=== PATIENT | female | born 1970 | race Asian ===

== ENCOUNTER 2019-06-10 12:26 | Inpatient (IN) | payer MEDICAID ==
[~2019-06-10] VITALS: Ht 160 cm; Wt 57.6 kg
--- NOTE | 2019-06-10 12:51 | NUR ---
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
--- NOTE | 2019-06-10 12:52 | NUR ---
Patient AUBREY from [facility] for rectal bleeding with clots that began this morning. Patient is nonverbal, trach to vent, with vent settings AC 16, TV 400, and FiO2 30%. Patient is contracted. Patient has history of HTN, hyperlipidemia, COPD, dysphagia, seizures, asthma, PNA, UTI, and sepsis. No signs or symptoms of acute distress noted.
--- NOTE | 2019-06-10 12:53 | NUR ---
ER Dr. Albarran at bedside examining patient.
--- NOTE | 2019-06-10 13:02 | NUR ---
Radiology at bedside for xray.
[2019-06-10 13:47] LABS: BASOPHILS % (AUTO) 0.6 % (0.0-2.0); EOSINOPHILS # (AUTO) 0.4 K/uL (0.0-0.4); EOSINOPHILS % (AUTO) 5.7 % (0.0-4.0); HEMATOCRIT 33.1 % (36-48); LYMPHOCYTES # (AUTO) 2.9 K/uL (1.0-5.5); MEAN CORPUSCULAR HEMOGLOBIN 30 pg (27-31); MEAN CORPUSCULAR HGB CONC 33 % (32-36); MEAN CORPUSCULAR VOLUME 90 fL (79.0-98.0); MONOCYTES # (AUTO) 0.5 K/uL (0.0-1.0); MONOCYTES % (AUTO) 6.5 % (1.7-9.3); NEUTROPHILS # (AUTO) 3.5 K/uL (1.8-7.7); NEUTROPHILS % (AUTO) 48.2 % (40.0-70.0); PLATELET COUNT (AUTO) 489 K/uL (130-430); RED BLOOD CELL COUNT(AUTO) 3.67 MIL/uL (4.2-6.2); RED CELL DISTRIBUTION WIDTH 14.8 % (9.0-15.0); WHITE BLOOD COUNT (AUTO) 7.3 K/uL (4.8-10.8)
[2019-06-10 13:59] LABS: CALCIUM 9.2 mg/dL (8.4-11.0); CREATININE 0.54 mg/dL (0.55-1.30); POTASSIUM 3.1 mmol/L (3.5-5.1)
[2019-06-10 14:04] LABS: ALBUMIN 3.7 g/dL (3.4-4.8); TOTAL BILIRUBIN 0.5 mg/dL (0.0-1.0)
[2019-06-10] MEDS ORDERED: LEVE500V GT (14:39)
[2019-06-10] MEDS ORDERED: CRAN450T9 GT (14:39)
[2019-06-10] MEDS ORDERED: NPH,100V SQ (14:39)
[2019-06-10] MEDS ORDERED: MOM GT (14:39)
[2019-06-10] MEDS ORDERED: INSU100V7 SQ (14:39)
[2019-06-10] MEDS ORDERED: HYDR-4100 GT (14:39)
[2019-06-10] MEDS ORDERED: ACET325C3 GT (14:39)
[2019-06-10] MEDS ORDERED: CLON0.1T GT (14:39)
[2019-06-10] MEDS ORDERED: FLEET PR (14:39)
[2019-06-10] MEDS ORDERED: FAMO-132 GT (14:39)
[2019-06-10] MEDS ORDERED: PERIDEX GT (14:39)
[2019-06-10] MEDS ORDERED: COLL100 GT (14:39)
[2019-06-10] MEDS ORDERED: LIP10 GT (14:39)
[2019-06-10] MEDS ORDERED: FENO145T37 GT (14:39)
[2019-06-10] MEDS ORDERED: SSNOVOLOG SUBCUT (14:41)
[2019-06-10] MEDS ORDERED: IPRA3AMP9 INH ×2 (14:46)
--- NOTE | 2019-06-10 14:46 | NUR ---
Medication reconciliation completed with information provided by CHENCHO CHAHAL. Any prior medication reconciliation on file was reviewed and corrected.
--- NOTE | 2019-06-10 15:35 | NUR ---
Patient will be admitted to care of Dr. Echeverria. Admitted to telemetry unit. Will go to room 123-A. Belongings list completed. Complete and up to date summary report printed. SBAR report to be given at bedside with opportunity for questions.
--- NOTE | 2019-06-10 16:40 | NUR ---
ADMISSION NOTE Received patient from ER via elena, received report from SOLOMON DUNCAN. Patient admitted with diagnosis of GI BLEED. Patient oriented to hospital routine, call light, toileting and safety-patient verbalized understanding.
--- NOTE | 2019-06-10 16:47 | NUR ---
CONSULTATION PAGED REASON FOR CONSULTATION:GI BLEED WAS CONSULT CALLED?Y PERSON WHO WAS NOTIFIED:AILEEN CONSULTING PHYSICIAN:LAWSON DEGROOT WIND ENERGY PROJECT MANAGER SPECIALTY:GI WIND ENERGY PROJECT MANAGER PHONE NUMBER:[phone] REQUESTING PHYSICIAN:XIOMARA DAVIS
--- NOTE | 2019-06-10 16:59 | NUR ---
Transfer to Telemetry Patient transferred to telemetry unit room 123-A on hospital bed on continuous panel monitor using ACLS protocol. ACLS RN and RT present at all times. No signs or symptoms of acute distress noted. Endorsed bedside report to Bernabe RN using SBAR approach for continuation of care.
--- NOTE | 2019-06-10 17:00 | NUR ---
Valenzuela Catheter changed 16FR, patient tolerated well, urine is yellow with sediments, not enough urine for urinalysis/urine culture at this time, Valenzuela Catheter to gravity.
[2019-06-10 17:14] VITALS: BP_SYST 148
--- NOTE | 2019-06-10 17:15 | NUR ---
Dr. Winters rounds SBAR report given, informed MD of need for tube feeding orders, will follow up.
[2019-06-10] MEDS ORDERED: IPRATROPIUM/ALBUTEROL SULFATE 3 ML AMPUL.NEB (DUONEB) INH PRN (18:15)
--- NOTE | 2019-06-10 18:48 | NUR ---
Paged Dr. Echeverria unable to obtain IV line for the patient, inquiring about orders for possible PICC line.
--- NOTE | 2019-06-10 18:58 | NUR ---
Closing note patient resting in bed, eyes closed, breathing is even and unlabored, no signs of distress, will endorse report to NOC shift nurse, bed in lowest position, three side rails up, bed alarm on, bed close to nursing station, fall, aspiration and seizure precautions in place.
--- NOTE | 2019-06-10 19:12 | NUR ---
PAGED I PAGED DR. ELIZABETH @ 1911 I SPOKE WITH SOLOMON HOFFMANN
--- NOTE | 2019-06-10 19:30 | NUR ---
OPENING NOTES RECEIVED PATIENT IN BED TRACH TO VENT WITH SETTINGS TOLERATED. BREATHING UNLABORED. BED IN LOWEST LOCKED POSITION WITH ALARM ON. SEIZURE PRECAUTIONS IN PLACED. STARTED ON GT FEEDING JEVITY 1.5 ORDERED. NO RESIDUAL OBTAINED. HOB ELEVATED 30 DEGREES.
[2019-06-10] MEDS: NACL 0.9% 1,000 ML IV SCH (19:53)
--- NOTE | 2019-06-10 19:53 | NUR ---
IVF INSERTED IV LINE TO RT HAND g#22. IVF INFUSION NS @ 75 ML/HR STARTED ORDERED.
[2019-06-10 19:58] VITALS: BP_SYST 149
--- NOTE | 2019-06-10 20:05 | NUR ---
DR. ELIZABETH: DR. ELIZABETH CALLED BACK @ 2004
[2019-06-10] MEDS: DOCUSATE SODIUM 100 MG/10 ML UDC GT SCH (20:14)
[2019-06-10] MEDS: ATORVASTATIN 20 MG TABLET GT SCH (20:14)
--- NOTE | 2019-06-10 20:15 | NUR ---
POTASSIUM SPOKE WITH DR. ELIZABETH MADE AWARE OF PATIENT LOW POTASSIUM LEVEL. ORDERED TO GIVE 30 MEQ KCL VIA GT. MD ORDER CARRIED OUT.
[2019-06-10] MEDS: INSULIN NPH 100 UNITS/ML 10 ML VIAL SQ SCH (20:24)
[2019-06-10] MEDS: CHLORHEXIDINE GLUCONATE 15 ML/DOSE, 480 ML MM SCH (20:28)
--- NOTE | 2019-06-10 20:28 | NUR ---
MED PASS PATIENT DUE MEDICATIONS GIVEN. VITAL SIGNS STABLE.
[2019-06-10] MEDS ORDERED: POTASSIUM CHLORIDE 20 MEQ/PKT PACKET GT SCH (20:30)
[2019-06-10] MEDS: IPRATROPIUM/ALBUTEROL SULFATE 3 ML AMPUL.NEB (DUONEB) INH SCH (20:59)
[2019-06-10] MEDS ORDERED: levETIRAcetam 500 MG in NS 100 ML IV ONE (21:00)
--- NOTE | 2019-06-10 23:40 | NUR ---
HAYWOOD CATH HAYWOOD CATH REMOVED NO OUTPUT NOTED. PATIENT CHUX WET WITH URINE. INSERTED NEW HAYWOOD CATH MOHAWK 16. CLOUDY YELLOW URINE WITH SEDIMENTS CAME OUT FROM THE CATHETER. CATH SECURED WITH SECUREMENT DEVICE AND HAYWOOD DRAINING BY GRAVITY.
--- NOTE | 2019-06-11 01:00 | NUR ---
URINE SPECIMEN COLLECTED URINE FOR UA C/S ORDERED. SENT TO LAB.
[2019-06-11 01:32] VITALS: BP_SYST 137
[2019-06-11 01:36] LABS: BILIRUBIN,URINE NEGATIVE (NEGATIVE); BLOOD, URINE 3+ (NEGATIVE); CLARITY/URINE SL CLOUDY (CLEAR); COLOR,URINE YELLOW (YELLOW); GLUCOSE,URINE NEGATIVE (NEGATIVE); KETONES,URINE NEGATIVE (NEGATIVE); LEUKOCYTE ESTERASE ,URINE 3+ (NEGATIVE); NITRITE, URINE POSITIVE (NEGATIVE); PH,URINE 8.5 (5.0-8.0); PROTEIN URINE 1+ (NEGATIVE)
[2019-06-11] MEDS: IPRATROPIUM/ALBUTEROL SULFATE 3 ML AMPUL.NEB (DUONEB) INH SCH ×3 (01:42→13:38)
[2019-06-11 01:44] LABS: BACTERIA,URINE MANY /HPF (None Seen); MUCUS,URINE 1+ /LPF (None Seen); RBC,URINE 50-80 /HPF (0-3); WBC,URINE >100 /HPF (0-3)
--- NOTE | 2019-06-11 03:30 | NUR ---
ROUNDS PATIENT RESTING IN BED. NO DISTRESS NOTED.
--- NOTE | 2019-06-11 05:50 | NUR ---
AM CARE AM CARE DONE. ALL LINENS CHANGED. COLLECTED STOOL OB ORDERED. GT DRESSING CHANGED.
[2019-06-11 06:45] LABS: BASOPHILS % (AUTO) 0.6 % (0.0-2.0); EOSINOPHILS # (AUTO) 0.2 K/uL (0.0-0.4); EOSINOPHILS % (AUTO) 3.3 % (0.0-4.0); HEMATOCRIT 29.5 % (36-48); HEMOGLOBIN 9.8 g/dL (12.0-16.0); LYMPHOCYTES # (AUTO) 2.3 K/uL (1.0-5.5); LYMPHOCYTES % (AUTO) 37.7 % (20.5-51.5); MEAN CORPUSCULAR HEMOGLOBIN 30 pg (27-31); MEAN CORPUSCULAR HGB CONC 33 % (32-36); MEAN CORPUSCULAR VOLUME 91 fL (79.0-98.0); MONOCYTES # (AUTO) 0.4 K/uL (0.0-1.0); MONOCYTES % (AUTO) 6.7 % (1.7-9.3); NEUTROPHILS # (AUTO) 3.2 K/uL (1.8-7.7); NEUTROPHILS % (AUTO) 51.7 % (40.0-70.0); PLATELET COUNT (AUTO) 445 K/uL (130-430); RED BLOOD CELL COUNT(AUTO) 3.24 MIL/uL (4.2-6.2); RED CELL DISTRIBUTION WIDTH 14.5 % (9.0-15.0); WHITE BLOOD COUNT (AUTO) 6.2 K/uL (4.8-10.8)
--- NOTE | 2019-06-11 06:53 | NUR ---
CLOSING NOTES PATIENT CONDITION UNCHANGED. GT FEEDING NO RESIDUAL THROUGH OUT THE NIGHT. CURRENT VENT SETTINGS TOLERATED. SEIZURE AND ASPIRATION PRECAUTIONS IN PLACED.
[2019-06-11 07:08] LABS: PROTHROMBIN TIME 9.8 SECS (9.5-12.5)
[2019-06-11 07:38] VITALS: BP_SYST 122
--- NOTE | 2019-06-11 07:42 | NUR ---
AM ROUNDS: Open eyes to verbal stimuli. Vent dependent to trach Portex size 8 cuffed. GT with Jevity 1.5 at 50 cc/hr . Bilateral hands and lower extremities are contracted. IV of normal saline at 75 cc/hr infusing on the left hand gauge 22, patent and intact.Valenzuela catheter with clear yellow urine with minimal sediments noted. Low air loss mattress for low nika score, bed in lowest position, call light within reach.
[2019-06-11 07:59] LABS: ALBUMIN 3.2 g/dL (3.4-4.8); CALCIUM 8.4 mg/dL (8.4-11.0); CREATININE 0.51 mg/dL (0.55-1.30); PHOSPHORUS 2.4 mg/dL (2.7-4.5); POTASSIUM 3.2 mmol/L (3.5-5.1)
[2019-06-11 08:01] LABS: TOTAL BILIRUBIN 0.2 mg/dL (0.0-1.0)
[2019-06-11] MEDS: NACL 0.9% 1,000 ML IV SCH ×2 (08:37→20:16)
[2019-06-11] MEDS: CHLORHEXIDINE GLUCONATE 15 ML/DOSE, 480 ML MM SCH ×2 (08:38→20:20)
[2019-06-11] MEDS ORDERED: levETIRAcetam 500 MG IV PREMIX 100 ML IV SCH (09:00)
[2019-06-11] MEDS: levETIRAcetam 500 MG IV PREMIX 100 ML IV SCH ×2 (09:01→20:20)
--- NOTE | 2019-06-11 09:57 | NUR ---
Nutrition Update German Scale 13 noted. Pt admitted for GI Bleed Diet: Jevity 1.5 @ 50ml/hr BMI: 22.5 kg/m2 RD to follow per nutrition care standards.
--- NOTE | 2019-06-11 11:00 | NUR ---
Bleeding: Large amount of dark red blood clots came out of the rectum while the patient was being cleaned. Will monitor. Stool OB result was reported earlier to Dr. Winters.
[2019-06-11] MEDS ORDERED: FLU VACC QS2019-20 36MOS UP/PF 60 MCG/0.5 ML SYRINGE I.M. PRN (12:15)
[2019-06-11 12:33] VITALS: BP_SYST 133
--- NOTE | 2019-06-11 12:55 | NUR ---
Wound Evaluation: Wound Consult ordered for Low German Score. Patient evaluated for a low German score of 13. Patient opens eyes, nonverbal, nonresponsive to verbal commands, and received in a [place] Bed with an Isoflex JEFFERY mattress with low air loss therapy initiated. Patient needs to be turned in bed. All extremities have contractures. Recommend reposition patient every 2 hours with pillow support. Elevate, off-load and float bilateral heels with pillows. Offload pressure areas with pillows for pressure re-distribution. Perform skin care and monitor skin integrity Q shift. Use moisture barrier cream on moisture susceptible areas QID and PRN for soiling. Maintain patient on a low air-loss mattress.
--- NOTE | 2019-06-11 13:10 | NUR ---
Midline INSERTION: Inserted on the right upper arm. Circumference is 25 cm, 0 external catheter. Covered with clear dressing, with biopatch
[2019-06-11 13:25] LABS: THYROID STIMULATING HORMONE 1.44 uIu/mL (0.34-4.82)
[2019-06-11] MEDS ORDERED: BISACODYL 5 MG TABLET.DR (DULCOLAX) PO ONE (17:00)
[2019-06-11 17:14] VITALS: BP_SYST 127
[2019-06-11] MEDS ORDERED: GOLYTELY / COLYTE SOLUTION 4 LITERS PO ONE (18:00)
--- NOTE | 2019-06-11 18:12 | NUR ---
notification of rectal bleeding: Dr Vazquez Rouse is notified of rectal bleeding. New orders received.
[2019-06-11 18:24] LABS: BASOPHILS % (AUTO) 0.3 % (0.0-2.0); EOSINOPHILS # (AUTO) 0.2 K/uL (0.0-0.4); EOSINOPHILS % (AUTO) 2.2 % (0.0-4.0); HEMATOCRIT 28.1 % (36-48); HEMOGLOBIN 9.3 g/dL (12.0-16.0); LYMPHOCYTES # (AUTO) 2.4 K/uL (1.0-5.5); MEAN CORPUSCULAR HEMOGLOBIN 31 pg (27-31); MEAN CORPUSCULAR HGB CONC 33 % (32-36); MEAN CORPUSCULAR VOLUME 92 fL (79.0-98.0); MONOCYTES # (AUTO) 0.4 K/uL (0.0-1.0); MONOCYTES % (AUTO) 5.1 % (1.7-9.3); NEUTROPHILS # (AUTO) 4.7 K/uL (1.8-7.7); NEUTROPHILS % (AUTO) 61.4 % (40.0-70.0); PLATELET COUNT (AUTO) 417 K/uL (130-430); RED BLOOD CELL COUNT(AUTO) 3.06 MIL/uL (4.2-6.2); WHITE BLOOD COUNT (AUTO) 7.6 K/uL (4.8-10.8)
[2019-06-11] MEDS ORDERED: POTASSIUM CHLORIDE 20 MEQ/PKT PACKET GT ONE (18:45)
--- NOTE | 2019-06-11 19:30 | NUR ---
INITIAL NOTES PATIENT IS LAYING IN BED AND STABLE. NO S/S OF RESPIRATORY DISTRESS NOTED. PLAN OF CARE WAS DISCUSSED WITH PATIENT AT THIS TIME. PATIENT UNSUCCESSFULLY DEMONSTRATES USAGE OF CALL LIGHT AT THIS TIME. WILL CONTINUE TO MONITOR. FALL, SAFETY, ASPIRATION, AND RESPIRATORY PRECAUTIONS WILL BE IN PLACE THROUGHOUT THE SHIFT.
[2019-06-11 19:35] VITALS: BP_SYST 115
--- NOTE | 2019-06-11 20:00 | NUR ---
CLEANSED PATIENT WAS CLEANED AND REPOSITION FOR COMFORT AT THIS TIME. PATIENT TOLERATED WELL. PATIENT REPOSITION FOR COMFORT. PT IS STABLE. NO S/S OF RESPIRATORY DISTRESS NOTED. CALL LIGHT IN REACH. BED IS LOCKED, ALARMED, AND AT THE LOWEST POSITION.
[2019-06-11] MEDS: DOCUSATE SODIUM 100 MG/10 ML UDC GT SCH (20:19)
[2019-06-11] MEDS: ATORVASTATIN 20 MG TABLET GT SCH (20:19)
[2019-06-11] MEDS: INSULIN NPH 100 UNITS/ML 10 ML VIAL SQ SCH (20:38)
--- NOTE | 2019-06-11 21:30 | NUR ---
ROUNDING PATIENT IS STABLE AND IN BED. NO S/S OF RESPIRATORY DISTRESS NOTED. CALL LIGHT IN REACH. BED IS LOCKED, ALARMED, AND AT THE LOWEST POSITION. WILL CONTINUE TO MONITOR.
--- NOTE | 2019-06-12 | NUR ---
NPO EDUCATED PATIENT ON NPO STATUS. PATIENT IS NOW NPO.
[2019-06-12 00:16] VITALS: BP_SYST 147
[2019-06-12] MEDS: IPRATROPIUM/ALBUTEROL SULFATE 3 ML AMPUL.NEB (DUONEB) INH SCH ×5 (01:17→20:08)
--- NOTE | 2019-06-12 01:34 | NUR ---
DR. ANDINO'S ROUNDS DR. Andino came in the unit. Per Dr. Andino, Dr. Echeverria told him to cover for him for this pt, placed an order as consult but reason for consult is Dr. Andino covering for Dr. Echeverria.
--- NOTE | 2019-06-12 02:00 | NUR ---
PATIENT IS SLEEPING AND STABLE. NO S/S OF RESPIRATORY DISTRESS NOTED. CALL LIGHT IN REACH. BED IS LOCKED, ALARMED, AND AT THE LOWEST POSITION. WILL CONTINUE TO MONITOR.
--- NOTE | 2019-06-12 04:00 | NUR ---
PATIENT IS SLEEPING IN BED AND STABLE. NO S/S OF RESPIRATORY DISTRESS NOTED. CALL LIGHT IN REACH. BED IS LOCKED, ALARMED, AND AT THE LOWEST POSITION. WILL CONTINUE TO MONITOR.
[2019-06-12] MEDS: cefTRIAXone 1 GM in D5W 50 ML IV SCH (04:21)
--- NOTE | 2019-06-12 05:10 | NUR ---
TAP WATER EDEMA DONE AT THIS TIME 3 L OF TAP WATER WAS USED. THE OUTPUT WAS CLEAR AND LIGHT BROWN. PATIENT TOLERATED WELL. PATIENT WAS REPOSITION FOR COMFORT. CALL LIGHT IN REACH. BED IS LOCKED, ALARMED, AND AT THE LOWEST POSITION.
[2019-06-12 06:18] LABS: BASOPHILS % (AUTO) 0.5 % (0.0-2.0); EOSINOPHILS # (AUTO) 0.2 K/uL (0.0-0.4); EOSINOPHILS % (AUTO) 3.3 % (0.0-4.0); LYMPHOCYTES # (AUTO) 2.6 K/uL (1.0-5.5); LYMPHOCYTES % (AUTO) 40.2 % (20.5-51.5); MEAN CORPUSCULAR HEMOGLOBIN 30 pg (27-31); MEAN CORPUSCULAR HGB CONC 33 % (32-36); MEAN CORPUSCULAR VOLUME 91 fL (79.0-98.0); MONOCYTES # (AUTO) 0.4 K/uL (0.0-1.0); MONOCYTES % (AUTO) 6.7 % (1.7-9.3); NEUTROPHILS # (AUTO) 3.2 K/uL (1.8-7.7); NEUTROPHILS % (AUTO) 49.3 % (40.0-70.0); PLATELET COUNT (AUTO) 344 K/uL (130-430); RED BLOOD CELL COUNT(AUTO) 2.32 MIL/uL (4.2-6.2); RED CELL DISTRIBUTION WIDTH 15.2 % (9.0-15.0); WHITE BLOOD COUNT (AUTO) 6.5 K/uL (4.8-10.8)
--- NOTE | 2019-06-12 06:18 | NUR ---
CLOSING NOTES PATIENT IS STABLE AND LAYING IN BED. NO S/S OF RESPIRATORY DISTRESS NOTED. CALL LIGHT IN REACH. BED IS LOCKED, ALARMED, AND AT THE LOWEST POSITION. FALL, SAFETY, ASPIRATION, RESPIRATORY, SEIZURES, AND CONTACT PRECAUTIONS HAS BEEN IN PLACE THROUGHOUT THE SHIFT. WILL CONTINUE TO MONITOR UNTIL REPORT IS GIVEN TO AM NURSE BY BEDSIDE. Addendum: 06/12/19 at 0621 by Jennifer Lock RN FALL, SAFETY, ASPIRATION, RESPIRATORY, AND SEIZURES PRECAUTIONS HAS BEEN IN PLACE THROUGHOUT THE SHIFT.*
[2019-06-12 06:34] LABS: HEMATOCRIT 21.2 % (36-48)
[2019-06-12 06:53] LABS: ALBUMIN 2.6 g/dL (3.4-4.8); CALCIUM 7.9 mg/dL (8.4-11.0); CREATININE 0.4 mg/dL (0.55-1.30); POTASSIUM 3.1 mmol/L (3.5-5.1); TOTAL BILIRUBIN 0.2 mg/dL (0.0-1.0)
--- NOTE | 2019-06-12 06:55 | NUR ---
MD Vazquez Rouse paged regarding critical H&H.
--- NOTE | 2019-06-12 07:13 | NUR ---
NUVIA DARNELL VP [employer]ER[employer] DR HILL WAS CALLED, RE: CRITICAL H AND H LEVELS. SPOKE TO BORIS.
--- NOTE | 2019-06-12 07:20 | NUR ---
CRITICAL LABS ENDORSED TO AM SHIFT NURSE.
[2019-06-12] MEDS: CHLORHEXIDINE GLUCONATE 15 ML/DOSE, 480 ML MM SCH ×2 (09:00→22:05)
[2019-06-12] MEDS: levETIRAcetam 500 MG IV PREMIX 100 ML IV SCH ×2 (10:10→21:58)
--- NOTE | 2019-06-12 10:30 | NUR ---
rounds first unit of blood started on the r upper arm infusing well. no infiltration noted. at bedside and observed for any blood transfusion reaction .
--- NOTE | 2019-06-12 11:30 | NUR ---
CONSULTATION PAGED/CALLED Reason for Consultation: [] Person Who was Notified: [] deloris Consulting Physician: [] DR BEAU ANDINO Wide Piece Goods Inspector Specialty: [] YARI Ordering Physician: [] DR ELIZABETH Addendum: 06/12/19 at 1134 by Linda De Leon HI/ REASON FOR CONSULT; R/O INFECTION ; BRONCHITIS
[2019-06-12] MEDS ORDERED: SIMETHICONE 40 MG/0.6 ML ML ONE (12:08)
--- NOTE | 2019-06-12 12:16 | NUR ---
rounds gi procedure at bedside being done by dr toscano and gi team at bedside.
[2019-06-12 12:30] VITALS: BP_SYST 133
--- NOTE | 2019-06-12 15:41 | NUR ---
Nutrition Assessment (short note d/t high patient load) A - RD reviewed pertinent nutrition-related info via EMR (physician notes/nursing notes/labs/meds/nursing care trends/care activity). Admission Dx: GI bleed PMH: asthma, COPD, HLD, respiratory failure, dysphagia, HTN, seizure disorder per physician notes Current Diet Order/Nutrition Support: NPO x0 days Ht: 63"/5'3" Wt: 128#/58 kg IBW:115#/52 kg %IBW: 112% UBW: N/A %UBW: N/A BMI: 22.5 kg/m2 (normal) Subjective Info: RD Notification received for TF. Nutrition Consult received for low nika. Pt was seen resting in bed, eyes closed, and evidence of Jevity 1.5 TF hung but not infusing at time of RD visit. Primary RN reported that pt had EGD/colonoscopy today, and may likely resume TF after results are available. Pt is not yet meeting optimal nutritional needs. ESTIMATED NUTRITIONAL NEEDS CALORIES/DAY: 9411-2978 kcal/day (25-30 kcal/kg CBW for maintenance) PROTEIN/DAY: 46-58 gm/day (0.8-1 gm/kg CBW for maintenance) FLUID/DAY: 1.7-2 L/day (30-35 ml/kg CBW for maintenance) D - Inadequate EN support related to maintenance as evidenced by no currently infusing nutrition support to meet estimated nutritional needs. I - Recommend Jevity 1.5 at 45 ml/hr (goal rate), Free Water Flush: 200 ml Q6h via GT Provides: 1620 kcal/day, 69 gm protein/day, and 1621 ml free water/day Meets: 93% of upper end of estimated caloric needs and 119% of upper end of estimated protein needs M - Monitor tolerance to EN support w/ goal of pt meeting at least 80% of estimated nutritional needs, labs trending WNL, normal GI function, and skin integrity/wt maintenance E - High risk; RD to F/U within 2-3 days
--- NOTE | 2019-06-12 15:46 | NUR ---
Dietitian Recommendations * Recommend Jevity 1.5 at 45 ml/hr (goal rate), Free Water Flush: 200 ml Q6h via GT Provides: 1620 kcal/day, 69 gm protein/day, and 1621 ml free water/day Meets: 93% of upper end of estimated caloric needs and 119% of upper end of estimated protein needs LP, RD Please refer to Nutrition Assessment for details.
[2019-06-12 16:32] VITALS: BP_SYST 130
[2019-06-12] MEDS: NACL 0.9% 1,000 ML IV SCH ×3 (18:36→21:20)
--- NOTE | 2019-06-12 19:21 | NUR ---
OPENING NOTES Received patient resting, eyes closed, opens eye when calling name, non verbal. Connected to vent, no signs of respiratory distress observed. IVF running to CHEL midline, patent, dressings c/d/i. Gtube patent, running Jevity 1.5, no kinks. Valenzuela catheter in place, no kinks or loops, bag not touching the floor, clear yellow urine. Seizure pads in place. Call light within reach, bed at lowest position. Will continue to monitor.
[2019-06-12 19:45] VITALS: BP_SYST 114
[2019-06-12] MEDS: INSULIN NPH 100 UNITS/ML 10 ML VIAL SQ SCH (22:02)
[2019-06-12] MEDS: DOCUSATE SODIUM 100 MG/10 ML UDC GT SCH (22:04)
[2019-06-12] MEDS: ATORVASTATIN 20 MG TABLET GT SCH (22:05)
--- NOTE | 2019-06-12 22:11 | NUR ---
Patient is resting, no signs of acute respiratory distress. Will continue to monitor.
[2019-06-13 00:13] VITALS: BP_SYST 134
[2019-06-13] MEDS: cefTRIAXone 1 GM in D5W 50 ML IV SCH (01:27)
[2019-06-13] MEDS: IPRATROPIUM/ALBUTEROL SULFATE 3 ML AMPUL.NEB (DUONEB) INH SCH ×3 (01:38→19:35)
--- NOTE | 2019-06-13 01:44 | NUR ---
Patient is resting, eyes closed. No signs of respiratory distress observed. Will continue to monitor.
--- NOTE | 2019-06-13 04:19 | NUR ---
Patient is resting, no signs of acute respiratory distress observed. Will continue to monitor.
--- NOTE | 2019-06-13 06:51 | NUR ---
CLOSING NOTES Patient is resting, eyes closed. Connected to vent, no signs of respiratory distress observed. IVF running to CHEL midline, patent, dressings c/d/i. Gtube patent, running Jevity 1.5, no kinks, 0ml Residual. Valenzuela catheter in place, no kinks or loops, bag not touching the floor, clear yellow urine. Seizure pads in place. Call light within reach, bed at lowest position, bed alarm on. All needs met throughout shift. Will endorse care to oncoming shift.
[2019-06-13 06:52] LABS: BASOPHILS % (AUTO) 0.3 % (0.0-2.0); EOSINOPHILS # (AUTO) 0.4 K/uL (0.0-0.4); EOSINOPHILS % (AUTO) 5.7 % (0.0-4.0); HEMATOCRIT 30.2 % (36-48); HEMOGLOBIN 10.1 g/dL (12.0-16.0); LYMPHOCYTES # (AUTO) 1.3 K/uL (1.0-5.5); LYMPHOCYTES % (AUTO) 20.1 % (20.5-51.5); MEAN CORPUSCULAR HEMOGLOBIN 31 pg (27-31); MEAN CORPUSCULAR HGB CONC 33 % (32-36); MEAN CORPUSCULAR VOLUME 92 fL (79.0-98.0); MONOCYTES # (AUTO) 0.3 K/uL (0.0-1.0); MONOCYTES % (AUTO) 5.2 % (1.7-9.3); NEUTROPHILS # (AUTO) 4.5 K/uL (1.8-7.7); NEUTROPHILS % (AUTO) 68.7 % (40.0-70.0); PLATELET COUNT (AUTO) 298 K/uL (130-430); PROTHROMBIN TIME 9.9 SECS (9.5-12.5); RED BLOOD CELL COUNT(AUTO) 3.28 MIL/uL (4.2-6.2); RED CELL DISTRIBUTION WIDTH 15.8 % (9.0-15.0); WHITE BLOOD COUNT (AUTO) 6.5 K/uL (4.8-10.8)
[2019-06-13 07:10] LABS: ALBUMIN 2.9 g/dL (3.4-4.8); CALCIUM 8.4 mg/dL (8.4-11.0); CREATININE 0.43 mg/dL (0.55-1.30); POTASSIUM 3.1 mmol/L (3.5-5.1); TOTAL BILIRUBIN 0.5 mg/dL (0.0-1.0)
--- NOTE | 2019-06-13 08:00 | NUR ---
initial notes rec patient opens eyes but non verbally responsive. r upper midline intact and infusing well with iv. no infiltration noted. gt feeding twila well and no residual noted. resp easy and unlabored. on mechanical ventilator. no sob noted. turned repositioned for comfort. was seen by dr toscano. bed to the lowest position and side rails up and locked.call light within reached.
[2019-06-13] MEDS ORDERED: MIDAZOLAM HCL/PF 2 MG/2 ML SYRINGE IVP ONE (10:00)
[2019-06-13] MEDS ORDERED: PHENYLEPH/MINERAL OIL/PETROLAT 45 GM OINT.APPL TP ONE (10:00)
[2019-06-13] MEDS ORDERED: MEPERIDINE HCL/PF 50 MG/ML AMP IM PRN (10:00)
[2019-06-13] MEDS: CHLORHEXIDINE GLUCONATE 15 ML/DOSE, 480 ML MM SCH ×2 (10:01→20:04)
[2019-06-13] MEDS: levETIRAcetam 500 MG IV PREMIX 100 ML IV SCH ×2 (10:01→20:04)
[2019-06-13] MEDS: FAMOTIDINE 20 MG TABLET GT SCH (10:01)
--- NOTE | 2019-06-13 12:00 | NUR ---
rounds visited be scar cab driver for dr prieto. no sob noted.
[2019-06-13] MEDS ORDERED: POTASSIUM CHLORIDE 20 MEQ/PKT PACKET GT ONE (12:15)
[2019-06-13 12:30] VITALS: BP_SYST 130
[2019-06-13] MEDS: NACL 0.9% 1,000 ML IV SCH (13:42)
--- NOTE | 2019-06-13 14:00 | NUR ---
rounds turned repositioned for comfort. no sob noted.
--- NOTE | 2019-06-13 16:00 | NUR ---
rounds gt feeding was changed. no residual noted.
[2019-06-13 16:29] VITALS: BP_SYST 130
--- NOTE | 2019-06-13 18:30 | NUR ---
closing notes dr leo ignacio was called re mdro and esbl of the urine and with orders. turned repositioned for comfort. no rectal bleeding noted. gt feeding twila well. no sob noted. stable and needs attended.
--- NOTE | 2019-06-13 19:30 | NUR ---
OPENING NOTES RECEIVED CARE OF PT AND SBAR REPORT. PT IS RESTING, WITH EYES CLOSED, AROUSES TO LIGHT TOUCH. PT IS NONVERBAL. BREATHING IS UNLABORED TO VENT SETTINGS, AC 16, TV 400, PEEP 5, FIO2 30%. IVF ARE INFUSING TO CHEL MIDLINE WITH NO SIGNS OF INFILTRATION AT IV SITE. GTUBE IS PATENT AND IS RUNNING JEVITY 1.5 AT 50 ML/HR. F/C IS INTACT AND DRAINING TO GRAVITY. SEIZURE PADS ARE IN PLACE. BED IS LOCKED AND ALARMED AT THE LOWEST LEVEL. ASPIRATION PRECUATIONS OBSERVED. CONTACT PRECAUTIONS MAINTIANED. WILL CONTINUE TO MONITOR.
[2019-06-13 20:00] VITALS: BP_SYST 138
[2019-06-13] MEDS: ATORVASTATIN 20 MG TABLET GT SCH (20:03)
[2019-06-13] MEDS: PHENYLEPH/MINERAL OIL/PETROLAT 45 GM OINT.APPL TP SCH (20:04)
[2019-06-13] MEDS: DOCUSATE SODIUM 100 MG/10 ML UDC GT SCH (20:04)
[2019-06-13] MEDS: INSULIN NPH 100 UNITS/ML 10 ML VIAL SQ SCH (20:14)
--- NOTE | 2019-06-13 20:14 | NUR ---
MEDICATION PASS. SCHEDULED MEDICATIONS ADMINISTERED ORDERED. GTUBE IS PATENT WITH NO RESIDUAL NOTED. ACCUCHECK SHOWED BLOOD SUGAR OF 143. 10 UNITS OF HUMULIN N ADMINISTERED SCHEDULED. NO S/S OF ACUTE DISTRESS. BREATHING IS UNLABORED TO VENT SETTINGS. SAFETY, ASPIRATION, SEIZURE, AND CONTACT PRECAUTIONS ARE IN PLACE. WILL MONITOR.
[2019-06-13] MEDS: MEROPENEM 500 MG in NS 50 ML IV SCH ×2 (21:42→21:45)
[2019-06-13] MEDS ORDERED: MEROPENEM 1 GM VIAL IV ONE (21:45)
--- NOTE | 2019-06-13 22:28 | NUR ---
FLU SHOT ADMINISTERED. PT TOLERATED WELL.
[2019-06-14] MEDS: NACL 0.9% 1,000 ML IV SCH ×2 (00:04→14:32)
--- NOTE | 2019-06-14 00:09 | NUR ---
INCONTINENCE CARE PATIENT INCONTINENT OF BOWELS. PATIENT WAS CLEANED AND REPOSITION FOR COMFORT AT THIS TIME. PATIENT TOLERATED WELL. PT IS STABLE. NO S/S OF RESPIRATORY DISTRESS NOTED. CALL LIGHT IN REACH. BED IS LOCKED, ALARMED, AND AT THE LOWEST POSITION. Addendum: 06/14/19 at 0120 by Dee Whittaker RN NO BLOOD IN STOOL OR RECTAL BLEEDING NOTED AT THIS TIME.
[2019-06-14 00:21] VITALS: BP_SYST 136
[2019-06-14] MEDS: IPRATROPIUM/ALBUTEROL SULFATE 3 ML AMPUL.NEB (DUONEB) INH SCH ×4 (00:41→20:05)
--- NOTE | 2019-06-14 02:19 | NUR ---
RN ROUNDS: PATIENT IS STABLE AND RESTING IN BED. NO S/S OF RESPIRATORY DISTRESS NOTED. CALL LIGHT IN REACH. BED IS LOCKED, ALARMED, AND AT THE LOWEST POSITION. WILL CONTINUE TO MONITOR.
[2019-06-14] MEDS: MEROPENEM 500 MG in NS 50 ML IV SCH ×3 (05:12→21:32)
--- NOTE | 2019-06-14 05:12 | NUR ---
MERREM/AM CARE SCHEDULED MERREM ADMINISTERED. NO S/S OF ADVERSE REACTION NOTED. PT REPOSITIONED FOR COMFORT WITH PILLOW SUPPORT. ORAL CARE PROVIDED. PT TOLERATED WELL. NO S/S OF DISTRESS. SAFETY, ASPIRATION, SEIZURE AND CONTACT PRECAUTIONS MAINTAINED. WILL MONITOR.
--- NOTE | 2019-06-14 06:25 | NUR ---
CLOSING NOTE PT IS RESTING, WITH EYES CLOSED, AROUSES TO LIGHT TOUCH. PT IS NONVERBAL. BREATHING IS UNLABORED TO VENT SETTINGS, AC 16, TV 400, PEEP 5, FIO2 30%. IVF ARE INFUSING TO CHEL MIDLINE WITH NO SIGNS OF INFILTRATION AT IV SITE. GTUBE IS PATENT AND IS RUNNING JEVITY 1.5 AT 50 ML/HR. F/C IS INTACT AND DRAINING TO GRAVITY. PT IS ON LOW AIR LOSS MATTRESS. SEIZURE PADS ARE IN PLACE. BED IS LOCKED AND ALARMED AT THE LOWEST LEVEL. ASPIRATION PRECAUTIONS OBSERVED. CONTACT PRECAUTIONS MAINTAINED. WILL CONTINUE TO MONITOR UNTIL PT CARE IS ENDORSED TO DAY SHIFT RN.
[2019-06-14 06:47] LABS: CALCIUM 8.3 mg/dL (8.4-11.0); CREATININE 0.54 mg/dL (0.55-1.30); POTASSIUM 3.8 mmol/L (3.5-5.1)
[2019-06-14 06:50] LABS: BASOPHILS % (AUTO) 0.3 % (0.0-2.0); EOSINOPHILS % (AUTO) 0.4 % (0.0-4.0); HEMATOCRIT 26.6 % (36-48); HEMOGLOBIN 9.3 g/dL (12.0-16.0); LYMPHOCYTES % (AUTO) 30.3 % (20.5-51.5); MEAN CORPUSCULAR HEMOGLOBIN 35 pg (27-31); MEAN CORPUSCULAR HGB CONC 35 % (32-36); MEAN CORPUSCULAR VOLUME 99 fL (79.0-98.0); MONOCYTES # (AUTO) 0.8 K/uL (0.0-1.0); MONOCYTES % (AUTO) 11.9 % (1.7-9.3); NEUTROPHILS # (AUTO) 3.7 K/uL (1.8-7.7); NEUTROPHILS % (AUTO) 57.1 % (40.0-70.0); PLATELET COUNT (AUTO) 171 K/uL (130-430); RED BLOOD CELL COUNT(AUTO) 2.69 MIL/uL (4.2-6.2); WHITE BLOOD COUNT (AUTO) 6.5 K/uL (4.8-10.8)
[2019-06-14 08:00] VITALS: BP_SYST 129
--- NOTE | 2019-06-14 08:00 | NUR ---
RN OPENING NOTE PATIENT IS RESTING IN BED, OPEN EYES, FLACC SCALE SHOWS THE PATIENT IS NO PAIN, PATIENT WAS ASSESSED, VITAL SIGNS ARE STABLE. G TUBE HAS 0 RESIDUE. BED AT LOW POSITION AND CALL LIGHT WITHIN REACH, PATIENT WAS REPOSITIONED, WILL CONTINUE TO MONITOR.
[2019-06-14] MEDS: levETIRAcetam 500 MG IV PREMIX 100 ML IV SCH ×2 (09:52→20:42)
[2019-06-14] MEDS: PHENYLEPH/MINERAL OIL/PETROLAT 45 GM OINT.APPL TP SCH ×2 (09:53→20:43)
[2019-06-14] MEDS: FAMOTIDINE 20 MG TABLET GT SCH (09:53)
[2019-06-14] MEDS: CHLORHEXIDINE GLUCONATE 15 ML/DOSE, 480 ML MM SCH ×2 (09:54→20:42)
--- NOTE | 2019-06-14 10:00 | NUR ---
RN NOTE PATIENT WAS GIVEN HER MEDICATION, PATIENT WAS GIVEN HER FREE WATER BY G TUBE AT 0900 AM, PATIENT WAS EDUCATED ABOUT FALL PREVENTION, BUT PATIENT IS INCOHERENT, WILL FOLLOW UP.
--- NOTE | 2019-06-14 12:00 | NUR ---
RN NOTE PATIENT WAS REPOSITIONED IN BED, FLACC SCALE SHOWS THE PATIENT HAS NO PAIN, PATIENT FEEDING TUBE IS GOING PRESCRIBED , ZERO RESIDUAL. WILL CONTINUE TO MONITOR.
[2019-06-14 12:26] VITALS: BP_SYST 131
--- NOTE | 2019-06-14 13:58 | NUR ---
RN NOTE PATIENT WAS REPOSITIONED IN BED, PATIENT WAS GIVEN HER IVPB OF ANTIBIOTICS FLACC SCALE SHOWS PATIENT IN NO PAIN, WILL CONTINUE TO MONITOR.
--- NOTE | 2019-06-14 16:00 | NUR ---
RN NOTE PATIENT IS RESTING IN BED, WAS REPOSITIONED, PATIENT FLACC SCALE SHOWS SHE HAS NO PAIN, THE LAB CALLED THAT THE PATIENT HAS ESBL AND MDRO IN THE SPUTUM. DR. MARGAUX HARRIS THE I.D WAS CONTACTED AND HE IS AWARE, PATIENT IS MEROPENEM. WILL CONTINUE TO MONITOR,.
[2019-06-14 16:20] VITALS: BP_SYST 140
--- NOTE | 2019-06-14 18:00 | NUR ---
RN CLOSING NOTE PATIENT IS RESTING IN BED, WAS REPOSITIONED. HEEL OF BED. LOW AIR MATTRESS. JAVITY 1.5 AT 50 ML/HOURS. GASTRIC RESIDUAL AT ZERO. PATIENT STILL ON THE SAME VENTILATOR SETTINGS BEFORE. FLACC SCALE SHOWS PATIENT IS NO PAIN OR DISTRESS, WILL CONTINUE TO MONITOR AND WILL ENDORSE TO NEXT SHIFT.
--- NOTE | 2019-06-14 19:30 | NUR ---
OPENING NOTES RECEIVED CARE OF PT AND SBAR REPORT. PT IS RESTING, WITH EYES CLOSED, AROUSES TO LIGHT TOUCH. PT IS NONVERBAL. BREATHING IS UNLABORED TO VENT SETTINGS, AC 16, TV 400, PEEP 5, FIO2 30%. IVF ARE INFUSING TO CHEL MIDLINE WITH NO SIGNS OF INFILTRATION AT IV SITE. GTUBE IS PATENT AND IS RUNNING JEVITY 1.5 AT 50 ML/HR. F/C IS INTACT AND DRAINING TO GRAVITY. PT IS ON LOW AIR LOSS MATTRESS. SEIZURE PADS ARE IN PLACE. BED IS LOCKED AND ALARMED AT THE LOWEST LEVEL. ASPIRATION PRECAUTIONS OBSERVED. CONTACT PRECAUTIONS MAINTAINED. WILL CONTINUE TO MONITOR.
[2019-06-14 20:00] VITALS: BP_SYST 138
[2019-06-14] MEDS: DOCUSATE SODIUM 100 MG/10 ML UDC GT SCH (20:42)
[2019-06-14] MEDS: ATORVASTATIN 20 MG TABLET GT SCH (20:42)
[2019-06-14] MEDS: INSULIN NPH 100 UNITS/ML 10 ML VIAL SQ SCH (20:47)
--- NOTE | 2019-06-14 20:47 | NUR ---
MEDICATION PASS. SCHEDULED MEDICATIONS ADMINISTERED ORDERED. GTUBE IS PATENT WITH NO RESIDUAL NOTED. ACCUCHECK SHOWED BLOOD SUGAR OF 140. 10 UNITS OF HUMULIN N ADMINISTERED SCHEDULED. NO S/S OF ACUTE DISTRESS. BREATHING IS UNLABORED TO VENT SETTINGS. SAFETY, ASPIRATION, SEIZURE, AND CONTACT PRECAUTIONS ARE IN PLACE. WILL MONITOR.
--- NOTE | 2019-06-14 21:32 | NUR ---
MERREM SCHEDULED MERREM ADMINISTERED. NO S/S OF ADVERSE REACTION NOTED.
--- NOTE | 2019-06-14 23:50 | NUR ---
ORAL CARE RENDERED. PT TOLERATED WELL. SAFETY, ASPIRATION, SEIZURE, AND CONTACT PRECAUTIONS REMAIN IN PLACE.
--- NOTE | 2019-06-15 00:02 | NUR ---
Rounds: Patient is resting in bed, no acute distress. No change in ventilator settings, patient tolerating well. No infiltration at IV site. Tubefeeding in place, galeano catheter draining to gravity. Will continue monitoring. Addendum: 06/16/19 at 0003 by Berny Osorio RN Please disregard note, wrong date.
[2019-06-15] MEDS: IPRATROPIUM/ALBUTEROL SULFATE 3 ML AMPUL.NEB (DUONEB) INH SCH ×4 (00:20→19:55)
[2019-06-15 00:30] VITALS: BP_SYST 140
--- NOTE | 2019-06-15 01:36 | NUR ---
RN ROUNDS: PATIENT WAS REPOSITIONED IN BED, FLACC SCALE SHOWS THE PATIENT HAS NO PAIN, PATIENT FEEDING TUBE IS GOING PRESCRIBED , ZERO RESIDUAL. IVF ARE INFUSING AT ORDERED RATE. F/C IS DRAINING WELL TO GRAVITY. TOLERATING VENT SETTINGS. NO S/S OF DISTRESS. SAFETY, ASPIRATION, CONTACT AND SEIZURE PRECAUTIONS OBSERVED. WILL CONTINUE TO MONITOR.
[2019-06-15] MEDS: NACL 0.9% 1,000 ML IV SCH ×3 (01:59→23:00)
--- NOTE | 2019-06-15 04:31 | NUR ---
AM CARE PT GIVEN COMPLETE BED BATH. LINEN AND GOWN CHANGE PROVIDED. ORAL HYGIENE AND SUCTIONING RENDERED. PT TOLERATED WELL. PT REPOSITIONED WITH PILLOW SUPPORT. NO S/S OF ACUTE DISTRESS. SAFETY, ASPIRATION, CONTACT AND SEIZURE PRECAUTIONS MAINTAINED. WILL MONITOR.
[2019-06-15] MEDS: MEROPENEM 500 MG in NS 50 ML IV SCH ×3 (05:04→23:00)
--- NOTE | 2019-06-15 06:27 | NUR ---
CLOSING NOTE PT IS RESTING, WITH EYES CLOSED, AROUSES TO LIGHT TOUCH. PT IS NONVERBAL. BREATHING IS UNLABORED TO VENT SETTINGS, AC 16, TV 400, PEEP 5, FIO2 30%. IVF ARE INFUSING TO CHEL MIDLINE WITH NO SIGNS OF INFILTRATION AT IV SITE. GTUBE IS PATENT AND IS RUNNING JEVITY 1.5 AT 50 ML/HR. F/C IS INTACT AND DRAINING TO GRAVITY. ORAL CARE PROVIDED THROUGHOUT SHIFT. PT REPOSITIONED Q2 HOURS THROUGHOUT SHIFT. PT IS ON LOW AIR LOSS MATTRESS. SEIZURE PADS ARE IN PLACE. BED IS LOCKED AND ALARMED AT THE LOWEST LEVEL. ASPIRATION PRECAUTIONS OBSERVED. CONTACT PRECAUTIONS MAINTAINED. WILL CONTINUE TO MONITOR UNTIL PT CARE IS ENDORSED TO DAY SHIFT RN.
[2019-06-15 07:51] VITALS: BP_SYST 141
--- NOTE | 2019-06-15 08:00 | NUR ---
Note Pt resting in bed with mechanical ventilator oxygenating pt at this time. No SOB/resp distress or pain/discomfort noted at this time. Tele unit attached and intact at this time. CHEL midline intact and patent infusing IVF's well. GT intact and patent infusing feedings. No needs noted at this time. Pt has bilateral SCD's at this time.
[2019-06-15] MEDS: FAMOTIDINE 20 MG TABLET GT SCH (08:38)
[2019-06-15] MEDS: levETIRAcetam 500 MG IV PREMIX 100 ML IV SCH ×2 (08:38→21:26)
[2019-06-15] MEDS: CHLORHEXIDINE GLUCONATE 15 ML/DOSE, 480 ML MM SCH ×2 (08:38→21:32)
[2019-06-15] MEDS: PHENYLEPH/MINERAL OIL/PETROLAT 45 GM OINT.APPL TP SCH ×2 (08:38→21:32)
--- NOTE | 2019-06-15 11:30 | NUR ---
Note Pt resting in bed, no needs noted at this time. Hygiene care and partial bed bath given by PLANNER CHIEF. Pt turned q2' and PRN as needed. Call light within reach.
[2019-06-15 13:20] VITALS: BP_SYST 152
--- NOTE | 2019-06-15 14:57 | NUR ---
Nutrition F/U RD reviewed pt's current EMR including diet Hx, physician notes, nursing notes, pertinent labs/meds/procedures, care trends and care activity. Current Diet Order/Nutrition Support: Jevity 1.5 at 50ml/hr Prosource BID, FWF 200ml via GT Subjective information: Pt seen in bed at time of RD visit earlier, EN infusing per MD. Per huddle discussion, pt on vent. Per RN, 3cc residual this morning. Prosource will be administered. Skin is intact. Last BM 2/. RN also noted BG to be elevated, MD order for accuchecks and insulin. RD to provide Glucerna for better BG control. ESTIMATED NUTRITIONAL NEEDS CALORIES/DAY: 4665-8685 kcal/day (25-30 kcal/kg CBW for maintenance) PROTEIN/DAY: 46-58 gm/day (0.8-1 gm/kg CBW for maintenance) FLUID/DAY: 1.7-2 L/day (30-35 ml/kg CBW for maintenance) D - 1. Inadequate EN support related to maintenance as evidenced by no currently infusing nutrition support to meet estimated nutritional needs. (*improved) 2. Altered nutrition related labs r/t ?endocrine dysfunction AEB elevated BG and POC BG lab values, no Hx of DM?. (*new) I - Recommend Glucerna 1.2 at 45 ml/hr (goal rate), Free Water Flush: 200 ml Q6h via GT Provides: 1728 kcal/day, 86 gm protein/day, and 1959 ml free water/day Meets: 99% of upper end of estimated caloric needs and 148% of upper end of estimated protein needs M - Monitor tolerance to EN support w/ goal of pt meeting at least 80% of estimated nutritional needs, labs trending WNL, normal GI function, and skin integrity/wt maintenance E - High risk; RD to F/U within 2-3 days
--- NOTE | 2019-06-15 15:04 | NUR ---
Dietitian Recommendation Recommend Glucerna 1.2 at 45 ml/hr (goal rate), Free Water Flush: 200 ml Q6h via GT Provides: 1728 kcal/day, 86 gm protein/day, and 1959 ml free water/day Meets: 99% of upper end of estimated caloric needs and 148% of upper end of estimated protein needs Please see Nutrition F/U PER [facility] RN informed.
--- NOTE | 2019-06-15 15:15 | NUR ---
Note Pt resting in bed with mechanical ventilation. No needs noted at this time. GT feeding infusing well at this time. Call light within reach.
[2019-06-15 18:04] VITALS: BP_SYST 118
--- NOTE | 2019-06-15 18:45 | NUR ---
Note Pt resting in bed. Pt was checked on q1' and PRN all shift for needs and care. CHEL midline intact and patent infusing IVF's well. GT feedings infusing well. Pt on mechanical ventilator all shift. Tele unit attached and intact all shift. Pt's SCD's on bilaterally on all shift. No needs noted at this time. Call light within reach. Valenzuela catheter intact and draining well all shift. Pt was maintained with safety and isolation precautions all shift. Pt has had padded side rails on all shift as well.
--- NOTE | 2019-06-15 19:36 | NUR ---
Initial note: Received report from ernestine RN. Patient is awake in bed, non-verbal. No acute distress. Trach to vent in place with settings of AC 16, TV 400, FiO2 30%, PEEP 5.0. CHEL midline receiving IV fluids per MD order. Tubefeeding via g-tube in place as ordered, 0 ML gastric residual aspirated. Valenzuela catheter draining to gravity. Call light with patient. Safety, fall, aspiration, seizure precautions in place. Contact isolation in place for ESBL urine and ESBL/MDRO sputum. Will continue with plan of care.
[2019-06-15 20:00] VITALS: BP_SYST 134
[2019-06-15] MEDS: ATORVASTATIN 20 MG TABLET GT SCH (21:26)
[2019-06-15] MEDS: DOCUSATE SODIUM 100 MG/10 ML UDC GT SCH (21:26)
[2019-06-15] MEDS: INSULIN NPH 100 UNITS/ML 10 ML VIAL SQ SCH (21:30)
--- NOTE | 2019-06-15 21:30 | NUR ---
Blood sugar: Patient's blood sugar is 125. Scheduled Humulin N 10 units administered subcutaneously. Tubefeeding in place at ordered rate. Will monitor for s/s hypoglycemia.
[2019-06-16] VITALS (7 sets, daily range): BP systolic 130–152
--- NOTE | 2019-06-16 00:03 | NUR ---
Rounds: Patient is resting in bed, no acute distress. No change in ventilator settings, patient tolerating well. No infiltration at IV site. Tubefeeding in place, galeano catheter draining to gravity. Will continue monitoring.
[2019-06-16] MEDS: IPRATROPIUM/ALBUTEROL SULFATE 3 ML AMPUL.NEB (DUONEB) INH SCH ×4 (00:35→19:42)
--- NOTE | 2019-06-16 03:33 | NUR ---
Rounds: Patient is resting comfortably in bed, no acute distress. Tolerating vent settings, no changes. IV fluids infusing as ordered. Tubefeeding in place as ordered. Call light is with patient. Will continue to monitor.
[2019-06-16] MEDS: MEROPENEM 500 MG in NS 50 ML IV SCH ×3 (05:00→21:40)
--- NOTE | 2019-06-16 06:11 | NUR ---
Closing note: Patient is resting in bed, no distress. No change in mechanical ventilation settings, tolerating well. IV fluids infusing per MD order. Tubefeeding in place as ordered. Valenzuela catheter draining well to gravity. All needs met. Safety, fall, aspiration, seizure, contact isolation precautions maintained. Hourly rounding performed throughout shift. Will endorse care to dayshift RN.
--- NOTE | 2019-06-16 07:40 | NUR ---
opening note patient is resting in bed, nonverbal, eyes closed at this time, educated certification technician light system and plan of care, vent settings AC 16 TV 400 FIO2 30% PEEP 5, Jevity 1.5 @ 50ml/hr running and patient is tolerating well, no signs of distress at this time, no other needs addressed at this time, brake armed, three side rails up, seizure pads on, fall/safety, seizure, and contact precautions in place.
[2019-06-16] MEDS: CHLORHEXIDINE GLUCONATE 15 ML/DOSE, 480 ML MM SCH ×2 (08:41→21:00)
[2019-06-16] MEDS: levETIRAcetam 500 MG IV PREMIX 100 ML IV SCH ×2 (08:41→21:39)
[2019-06-16] MEDS: FAMOTIDINE 20 MG TABLET GT SCH (08:41)
[2019-06-16] MEDS: PHENYLEPH/MINERAL OIL/PETROLAT 45 GM OINT.APPL TP SCH ×2 (08:42→21:00)
--- NOTE | 2019-06-16 10:00 | NUR ---
hygiene care done with MEDICAL TERMINOLOGIST, no signs of distress at this time, no other needs addressed at this time, fall/safety, seizure, and contact precautions in place.
--- NOTE | 2019-06-16 12:00 | NUR ---
Dr Echeverria rounds came to see patient, updated on DC planning, patient is resting in bed, no signs of distress at this time, tolerating IVF and tube feeding, no other needs at this time, fall/safety precautions in place.
--- NOTE | 2019-06-16 13:54 | NUR ---
DC Planning: Per [facility]: the pt is clinically accepted but pending authorization from [employer]. EZEQUIEL LVM to CM.[facility] [facility] # [phone], and [phone] to request pt transfer to LTAC. Addendum: 06/16/19 at 1425 by Gabriel Rodriguez RN >> Called [employer] main number/provider line# [phone], s/w Estefany who will get the assigned CM to call me back. I am requesting auth for [facility]. -- CM to f/u. call ref#[id number]. Addendum: 06/16/19 at 1629 by Gabriel Rodriguez RN >> Retuning call from [facility]/[employer] # [phone] updated him and requested auth for [facility]. [facility] contact number provided. [facility] will also call [facility] dept # to process the authorization. CM to f/u in am. Addendum: 06/16/19 at 1648 by Gabriel Rodriguez RN Per [facility] [facility] and [facility] : the pt is approved for LTAC and will need the discharge order from dr. Echeverria in order for [facility] to release the bed assignment. __ DAKOTA Can made aware. -- justyna Boyd to call [facility], CCRT transfer, no auth required per [facility]. Addendum: 06/16/19 at 1658 by Gabriel Rodriguez RN Notified Ariela Mcghee, son # [phone] about the transfer plan to [facility]. He is agreeable with POC.
--- NOTE | 2019-06-16 14:01 | NUR ---
Wound Re-Evaluation: Wound Consult ordered for Low German Score. Patient re-evaluated for a low German score of 13, now a 14. Patient opens eyes, nonverbal, nonresponsive to verbal commands, and received in a Van Bed with an Isoflex JEFFERY mattress with low air loss therapy. Patient needs to be turned in bed. All extremities have contractures. Recommend reposition patient every 2 hours with pillow support. Elevate, off-load and float bilateral heels with pillows. Offload pressure areas with pillows for pressure re-distribution. Perform skin care and monitor skin integrity Q shift. Use moisture barrier cream on moisture susceptible areas QID and PRN for soiling. Maintain patient on a low air-loss mattress.
--- NOTE | 2019-06-16 14:13 | NUR ---
rounds patient resting in bed, wound care consult came to see patient, skin intact and well, patient tolerating tube feeding and IVF well, no signs of distress, RT giving breathing treatment, no other needs at this time, fall/safety, seizure, and contact precautions in place.
--- NOTE | 2019-06-16 16:00 | NUR ---
free water flush 200ml free water flushed, patient tolerating tube feeding well, no signs of distress at this time, no other needs addressed at this time, fall/safety, seizure, and contact precautions in place.
--- NOTE | 2019-06-16 18:30 | NUR ---
CLOSING NOTE patient is resting in bed, nonverbal, eyes closed at this time, vent settings AC 16 TV 400 FIO2 30% PEEP 5, Jevity 1.5 @ 50ml/hr running and patient is tolerating well, no signs of distress at this time, no other needs addressed at this time, brake armed, three side rails up, seizure pads on, fall/safety, seizure, and contact precautions in place, will endorse report to [facility] shift nurse to continue with care, patient will be transferred to [facility], waiting for Nadeem to call back for bed and accepting physician, once that has been received transportation needs to be called for patient, packet is at the nurses' station. 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
[2019-06-16] MEDS: NACL 0.9% 1,000 ML IV SCH (18:40)
--- NOTE | 2019-06-16 19:15 | NUR ---
OPENING NOTE Late entry due to patient care. Bedside report received from dayshift nurse. Patient received lying in bed, eyes closed, appears to be asleep. No s/s of acute distress noted. Breathing is even and unlabored. HOB raised. IVF and Tube feeding infusing well. Trach to vent, with settings: AC 16, TV 400, FiO2 30, PEEP 5. Patient tolerating well, SPO2 100. Valenzuela attached, secured, and draining by gravity. SCDs attached and operating. Call light with patient. Bed alarm on. Will continue to monitor.
--- NOTE | 2019-06-16 21:04 | NUR ---
TALKED TO SON/REPORT GIVEN TO KRISHAN/ROUNDS Spoke with patient's son, Dhiraj Mcghee, informed him that patient is transferring to [facility], he agreed. Report given to DAKOTA Modi, at this time. Patient going to room 315B. Patient in bed, asleep. No signs of discomfort noted. Chest rise and fall even bilaterally. All needs met. Will continue to monitor.
[2019-06-16] MEDS: DOCUSATE SODIUM 100 MG/10 ML UDC GT SCH (21:39)
[2019-06-16] MEDS: ATORVASTATIN 20 MG TABLET GT SCH (21:39)
[2019-06-16] MEDS: INSULIN NPH 100 UNITS/ML 10 ML VIAL SQ SCH (21:42)
--- NOTE | 2019-06-16 23:55 | NUR ---
DISCHARGE Report given to Tony, EMT, with [facility]. Patient in bed, resting, no s/s of acute distress noted. Breathing even and unlabored. Midline at right upper up, patent, no signs of infiltration or infection noted. Gtube intact. Valenzuela attached, secured, and draining by gravity. Trach attached and secured. Skin warm and dry to touch. All needs met. Isolation precautions maintained. Patient escorted out of unit via gurney.
[2019-07-10] MEDS ORDERED: HYDROcodone/ACETAMIN 10-325 MG TAB GT PRN (09:00)
== END 2019-06-16 23:55 | DRG 130 ==
LOC: SED 12:26 → STU 15:37
PROVIDERS: ADMIT Internal Medicine; ATTEND Internal Medicine
PROC: 5A1955Z Respiratory Ventilation, Greater than 96 Consecutive Hours (ICD-10-PCS; 2019-06-10)
PROC: 05HY33Z Insertion of Infusion Device into Upper Vein, Percutaneous Approach (ICD-10-PCS; 2019-06-11)
PROC: B54MZZA Ultrasonography of Right Upper Extremity Veins, Guidance (ICD-10-PCS; 2019-06-11)
PROC: 0DB98ZX Excision of Duodenum, Via Natural or Artificial Opening Endoscopic, Diagnostic (ICD-10-PCS; 2019-06-12)
PROC: 30233N1 Transfusion of Nonautologous Red Blood Cells into Peripheral Vein, Percutaneous Approach (ICD-10-PCS; 2019-06-12)
PROC: 0DB68ZX Excision of Stomach, Via Natural or Artificial Opening Endoscopic, Diagnostic (ICD-10-PCS; 2019-06-12)
PROC: 0DJD8ZZ Inspection of Lower Intestinal Tract, Via Natural or Artificial Opening Endoscopic (ICD-10-PCS; principal; 2019-06-12 09:00)
DX: J96.21 Acute and chronic respiratory failure with hypoxia (principal); K62.6 Ulcer of anus and rectum; Z99.11 Dependence on respirator [ventilator] status; Z93.0 Tracheostomy status; J44.9 Chronic obstructive pulmonary disease, unspecified; R13.10 Dysphagia, unspecified; K29.70 Gastritis, unspecified, without bleeding; K29.80 Duodenitis without bleeding; D64.9 Anemia, unspecified; E78.5 Hyperlipidemia, unspecified; N39.0 Urinary tract infection, site not specified; F19.10 Other psychoactive substance abuse, uncomplicated; G40.909 Epilepsy, unspecified, not intractable, without status epilepticus; K59.00 Constipation, unspecified; I10 Essential (primary) hypertension; K64.9 Unspecified hemorrhoids; Z87.440 Personal history of urinary (tract) infections; Z93.1 Gastrostomy status
CPT/HCPCS: 36415; 43239; 45378; 71045; 80048; 80053; 81000-TC; 82140-TC; 82150-TC; 82272; 82550-TC; 82962; 83690-TC; 83735-TC; 83880; 84100-TC; 84439; 84443-TC; 84484; 85025; 85610-TC; 85730-TC; 86886; 86900; 86901; 86920; 87070-TC; 87081; 87086; 87186-TC; 87205-TC; 93005; 94002; 94003; 94640; 94760; 99291; C1751; G0378; J0696; J1815; J1953; J2185; J3465; J7030; J7050; J7060; P9021